=== PATIENT | male | born 1955 | race Asian ===

== ENCOUNTER 2023-12-24 19:41 | Inpatient (IN) | payer MEDICARE, MEDICAID ==
[~2023-12-24] VITALS: Ht 170.2 cm; Wt 66.2 kg
[2023-12-24] MEDS: IV NORMAL SALINE 1000 ML BAG IV ONE (20:00)
[2023-12-24] MEDS: HYDROCODONE/APAP 10-325 MG TABLET PO ONE (20:55)
[2023-12-24] MEDS ORDERED: HYDROCODONE/APAP 5-325MG TABLET ONE (20:57)
[2023-12-24 21:01] LABS: BASOPHILS # (AUTO) 0.1 K/UL (0.0-0.2); BASOPHILS % (AUTO) 1.3 % (0.0-2.0); EOSINOPHILS # (AUTO) 0.9 K/uL (0.0-0.7); EOSINOPHILS % (AUTO) 10.4 % (0.0-7.0); HEMATOCRIT 29.8 % (36.7-47.1); HEMOGLOBIN 9.4 g/dL (12.5-16.3); LYMPHOCYTES % (AUTO) 10.9 % (20.5-51.5); MEAN CORPUSCULAR HEMOGLOBIN 25.1 uug (23.8-33.4); MEAN CORPUSCULAR HGB CONC 32 g/dL (32.5-36.3); MEAN CORPUSCULAR VOLUME 79.5 fL (73.0-96.2); MONOCYTES # (AUTO) 0.5 K/uL (0.1-1.30); MONOCYTES % (AUTO) 5.6 % (0.0-11.0); NEUTROPHILS # (AUTO) 6.3 K/uL (1.8-8.9); NEUTROPHILS % (AUTO) 71.8 % (38.5-71.5); PLATELET COUNT (AUTO) 270 K/uL (152-348); RED BLOOD CELL COUNT(AUTO) 3.75 MIL/uL (4.06-5.63); RED CELL DISTRIBUTION WIDTH 15.9 % (12.1-16.2); WHITE BLOOD COUNT (AUTO) 8.8 K/uL (3.6-10.2)
[2023-12-24 21:03] LABS: DIFFERENTIAL COMMENT 1
[2023-12-24 21:07] LABS: CALCIUM 8.5 mg/dL (8.5-10.1); CARBON DIOXIDE 24 mmol/L (21-32); CHLORIDE 106 mmol/L (98-107); CREATININE 2.5 mg/dL (0.6-1.3); GLUCOSE 172 mg/dL (74-106); POTASSIUM 4.6 mmol/L (3.5-5.1); SODIUM SERUM 140 mmol/L (136-145); UREA NITROGEN, BLOOD 22 mg/dL (7-18)
[2023-12-24 21:15] LABS: ALBUMIN 1.9 g/dL (3.4-5.0); ALKALINE PHOSPHATASE 110 U/L (50-136); ASPARTATE AMINOTRANSFERASE 6 U/L (15-37); BILIRUBIN,DIRECT 0.1 mg/dL (0.0-0.2); BILIRUBIN,TOTAL 0.2 mg/dL (0.2-1.0); LIPASE 23 U/L (16-77); TOTAL PROTEIN, SERUM 6.7 g/dL (6.4-8.2)
[2023-12-24 21:16] LABS: ALANINE AMINOTRANSFERASE < 6 U/L (16-63)
[2023-12-24] MEDS ORDERED: ONDANSETRON 4 MG/2 ML VIAL IV PRN (23:00)
[2023-12-24] MEDS ORDERED: ACETAMINOPHEN 650 MG SUPP.RECT RC PRN (23:00)
[2023-12-24] MEDS ORDERED: PEDI0.2517 (23:43)
[2023-12-24] MEDS ORDERED: ATOR40TA PO (23:43)
[2023-12-24] MEDS ORDERED: ISOS10TA2 PO (23:43)
[2023-12-24] MEDS ORDERED: POLY17PO20 PO (23:43)
[2023-12-24] MEDS ORDERED: TAMS-3 PO (23:43)
[2023-12-24] MEDS ORDERED: DOCU-141 PO (23:43)
[2023-12-24] MEDS ORDERED: METO25TA6 PO (23:43)
[2023-12-24] MEDS ORDERED: INSU100V9 SUBCUT (23:43)
[2023-12-24] MEDS ORDERED: MIRT-121 PO (23:43)
[2023-12-24] MEDS ORDERED: PANT40TA2 PO (23:43)
[2023-12-24] MEDS ORDERED: SENN-261 PO (23:43)
[2023-12-25] MEDS: VANCOMYCIN IV 1,000 MG in IV DEXTROSE 5% 250 ML IV ONE (01:45)
[2023-12-25] MEDS: PIPERACILLIN/TAZO 2.25 G in IV DEXTROSE 5% 50 ML IV ONE (02:00)
[2023-12-25 03:08] VITALS: BP 138/68; TEMP 98.1; O2SAT 99
[2023-12-25 06:08] VITALS: BP 111/69; TEMP 98; O2SAT 99
[2023-12-25] MEDS ORDERED: MAGN400O6 PO (08:20)
[2023-12-25] MEDS ORDERED: HYDR-3980 PO (08:20)
[2023-12-25] MEDS ORDERED: BISA10SU61 RC (08:20)
[2023-12-25] MEDS ORDERED: MULT-366 PO (08:20)
[2023-12-25] MEDS ORDERED: NA P133E RC (08:20)
[2023-12-25] MEDS ORDERED: APIX5TAB PO (08:20)
[2023-12-25] MEDS ORDERED: ACET325T53 PO (08:20)
[2023-12-25] MEDS ORDERED: HYDR-4209 PO (08:56)
[2023-12-25] MEDS: PANTOPRAZOLE SODIUM 40 MG VIAL IV SCH (10:56)
[2023-12-25 11:51] VITALS: BP 138/56; TEMP 97.4; O2SAT 99
[2023-12-25] MEDS: PIPERACILLIN/TAZO 2.25 G in IV DEXTROSE 5% 50 ML IV SCH (12:38)
[2023-12-25] MEDS: VANCOMYCIN HCL 750 MG in IV DEXTROSE 5% 250 ML IV ONE (13:40)
[2023-12-25] MEDS ORDERED: BISACODYL 10 MG SUPP.RECT RC PRN (13:45)
[2023-12-25] MEDS: HYDROCODONE/APAP 5-325MG TABLET PO PRN (14:41)
[2023-12-25 16:21] LABS: EOSINOPHILS # (AUTO) 0.2 K/uL (0.0-0.7); EOSINOPHILS % (AUTO) 3.3 % (0.0-7.0); HEMATOCRIT 28.2 % (36.7-47.1); HEMOGLOBIN 8.8 g/dL (12.5-16.3); LYMPHOCYTES # (AUTO) 0.1 K/uL (0.8-4.8); LYMPHOCYTES % (AUTO) 2.3 % (20.5-51.5); MEAN CORPUSCULAR HEMOGLOBIN 24.7 uug (23.8-33.4); MEAN CORPUSCULAR HGB CONC 31 g/dL (32.5-36.3); MEAN CORPUSCULAR VOLUME 79.6 fL (73.0-96.2); MONOCYTES % (AUTO) 0.4 % (0.0-11.0); NEUTROPHILS # (AUTO) 5.8 K/uL (1.8-8.9); PLATELET COUNT (AUTO) 247 K/uL (152-348); RED BLOOD CELL COUNT(AUTO) 3.55 MIL/uL (4.06-5.63); RED CELL DISTRIBUTION WIDTH 15.9 % (12.1-16.2); WHITE BLOOD COUNT (AUTO) 6.2 K/uL (3.6-10.2)
[2023-12-25 16:22] LABS: DIFFERENTIAL COMMENT 1
[2023-12-25] MEDS: BISACODYL 10 MG SUPP.RECT RC PRN (16:22)
[2023-12-25 16:30] VITALS: BP 105/55; TEMP 98.4; O2SAT 97
[2023-12-25] MEDS: INSULIN REGULAR, HUMAN 300 UNIT/3 ML VIAL SQ SCH (16:30)
[2023-12-25] MEDS: BLOOD SUGAR DIAGNOSTIC 1 EACH STRIP VI SCH (16:45)
[2023-12-25 16:46] LABS: THYROID STIMULATING HORMONE 0.908 mIU/mL (0.358-3.740)
[2023-12-25] MEDS: METOPROLOL TARTRATE 25 MG TABLET PO SCH (17:00)
[2023-12-25] MEDS: APIXABAN 5 MG TABLET PO SCH (17:00)
[2023-12-25 17:29] LABS: ALBUMIN 1.8 g/dL (3.4-5.0); BILIRUBIN,TOTAL 0.5 mg/dL (0.2-1.0); CALCIUM 8.4 mg/dL (8.5-10.1); CREATININE 2.5 mg/dL (0.6-1.3); MAGNESIUM 2.1 mg/dL (1.8-2.4); PHOSPHOROUS 3.5 mg/dL (2.5-4.9); POTASSIUM 4.2 mmol/L (3.5-5.1); TOTAL PROTEIN, SERUM 6.1 g/dL (6.4-8.2)
[2023-12-25] MEDS: MIRTAZAPINE 15 MG TABLET PO SCH (21:00)
[2023-12-25] MEDS: TAMSULOSIN HCL 0.4 MG CAP.SR.24H PO SCH (21:00)
[2023-12-25] MEDS: ATORVASTATIN 40 MG TABLET PO SCH (21:00)
[2023-12-25] MEDS: ISOSORBIDE DINITRATE 10 MG TABLET PO SCH (21:16)
[2023-12-25 22:13] VITALS: BP 171/65; TEMP 97.6; O2SAT 98
[2023-12-25] MEDS ORDERED: hydrALAZINE HCL 25 MG TABLET PO SCH (22:30)
[2023-12-26] MEDS: IV D5/ 0.9% NACL 1,000 ML IV PRN (03:25)
[2023-12-26 06:29] VITALS: BP 111/50; TEMP 98.7; O2SAT 99
[2023-12-26] MEDS ORDERED: PANTOPRAZOLE SODIUM 40 MG TABLET.DR PO SCH (07:00)
[2023-12-26] MEDS ORDERED: hydrALAZINE HCL 20 MG/1 ML VIAL IV PRN (08:00)
[2023-12-26 08:06] LABS: CARCINOEMBRYONIC AG (CEA) 3.2 ng/mL (0.0-4.7)
[2023-12-26] MEDS: DOCUSATE SODIUM 100 MG CAPSULE PO SCH (08:18)
[2023-12-26] MEDS: ISOSORBIDE DINITRATE 10 MG TABLET PO SCH (08:26)
[2023-12-26 11:13] VITALS: BP_SYST 56; TEMP 97.8; O2SAT 99
[2023-12-26 13:09] LABS: CALCITRIOL VIT D,1,25 DIHYDROX 10.2 pg/mL (24.8-81.5)
[2023-12-26 16:00] VITALS: BP 109/56; TEMP 99.1; O2SAT 99
[2023-12-26] MEDS: VANCOMYCIN HCL 750 MG in IV DEXTROSE 5% 250 ML IV ONE (17:25)
[2023-12-26 20:29] VITALS: BP 111/62; TEMP 98.1; O2SAT 99
[2023-12-27 05:50] VITALS: BP 143/70; TEMP 98.8; O2SAT 98
[2023-12-27 12:25] LABS: BASOPHILS % (AUTO) 0.6 % (0.0-2.0); EOSINOPHILS # (AUTO) 0.6 K/uL (0.0-0.7); EOSINOPHILS % (AUTO) 11.3 % (0.0-7.0); HEMATOCRIT 29.3 % (36.7-47.1); LYMPHOCYTES # (AUTO) 0.1 K/uL (0.8-4.8); LYMPHOCYTES % (AUTO) 1.7 % (20.5-51.5); MEAN CORPUSCULAR HEMOGLOBIN 24.2 uug (23.8-33.4); MEAN CORPUSCULAR HGB CONC 31 g/dL (32.5-36.3); MEAN CORPUSCULAR VOLUME 78.6 fL (73.0-96.2); MONOCYTES # (AUTO) 0.2 K/uL (0.1-1.30); MONOCYTES % (AUTO) 3.4 % (0.0-11.0); NEUTROPHILS # (AUTO) 4.7 K/uL (1.8-8.9); PLATELET COUNT (AUTO) 213 K/uL (152-348); RED BLOOD CELL COUNT(AUTO) 3.72 MIL/uL (4.06-5.63); RED CELL DISTRIBUTION WIDTH 16.1 % (12.1-16.2); WHITE BLOOD COUNT (AUTO) 5.6 K/uL (3.6-10.2)
[2023-12-27 12:36] LABS: ALBUMIN 1.6 g/dL (3.4-5.0); ALKALINE PHOSPHATASE 80 U/L (50-136); ASPARTATE AMINOTRANSFERASE 6 U/L (15-37); BILIRUBIN,TOTAL 0.4 mg/dL (0.2-1.0); CARBON DIOXIDE 24 mmol/L (21-32); CHLORIDE 109 mmol/L (98-107); CREATININE 2.6 mg/dL (0.6-1.3); GLUCOSE 144 mg/dL (74-106); MAGNESIUM 1.9 mg/dL (1.8-2.4); PHOSPHOROUS 3.1 mg/dL (2.5-4.9); POTASSIUM 4.1 mmol/L (3.5-5.1); SODIUM SERUM 141 mmol/L (136-145); TOTAL PROTEIN, SERUM 5.9 g/dL (6.4-8.2); UREA NITROGEN, BLOOD 20 mg/dL (7-18)
[2023-12-27 12:38] LABS: ALANINE AMINOTRANSFERASE < 6 U/L (16-63); DIFFERENTIAL COMMENT 1
[2023-12-27] MEDS: VANCOMYCIN HCL 750 MG in IV DEXTROSE 5% 250 ML IV ONE (17:43)
[2023-12-27 20:00] VITALS: BP 156/70; TEMP 98.2; O2SAT 99
[2023-12-28 02:06] LABS: *BILIRUBIN,URIN NEGATIVE (NEGATIVE); *CLARITY,URINE CLEAR (CLEAR); *COLOR,URINE YELLOW (YELLOW); *KETONES,URINE NEGATIVE (NEGATIVE); *UROBILINOGEN,URINE 0.2 E.U./dl (NORMAL); LEUKOCYTE ESTERASE ,URINE NEGATIVE (NEGATIVE); NITRITE, URINE NEGATIVE (NEGATIVE); UGLUCOSE NEGATIVE (NEGATIVE)
[2023-12-28 02:25] LABS: *BLOOD, URINE NEGATIVE (NEGATIVE); *PROTEIN,URINE 3+ (NEGATIVE)
[2023-12-28 02:26] LABS: BACTERIA,URINE NONE SEEN /HPF (NONE SEEN); RBC,URINE 0-3 /HPF (0-3); SQUAMOUS EPITHELIAL CELL,UR NONE SEEN /HPF (NONE SEEN); WBC,URINE NONE SEEN /HPF (0-3)
[2023-12-28 02:30] LABS: *CREATININE,URINE 37.6 mg/dL (30-125); *URINE TOTAL PROTEIN RANDOM 146.1 mg/dL (<150/24HR)
[2023-12-28 10:28] LABS: BASOPHILS % (AUTO) 0.3 % (0.0-2.0); EOSINOPHILS # (AUTO) 0.5 K/uL (0.0-0.7); EOSINOPHILS % (AUTO) 15.5 % (0.0-7.0); HEMATOCRIT 28.1 % (36.7-47.1); HEMOGLOBIN 8.9 g/dL (12.5-16.3); LYMPHOCYTES # (AUTO) 0.1 K/uL (0.8-4.8); LYMPHOCYTES % (AUTO) 3.2 % (20.5-51.5); MEAN CORPUSCULAR HEMOGLOBIN 25.1 uug (23.8-33.4); MEAN CORPUSCULAR HGB CONC 32 g/dL (32.5-36.3); MEAN CORPUSCULAR VOLUME 78.9 fL (73.0-96.2); MONOCYTES # (AUTO) 0.2 K/uL (0.1-1.30); MONOCYTES % (AUTO) 6.1 % (0.0-11.0); NEUTROPHILS # (AUTO) 2.7 K/uL (1.8-8.9); NEUTROPHILS % (AUTO) 74.9 % (38.5-71.5); PLATELET COUNT (AUTO) 186 K/uL (152-348); RED BLOOD CELL COUNT(AUTO) 3.56 MIL/uL (4.06-5.63); WHITE BLOOD COUNT (AUTO) 3.5 K/uL (3.6-10.2)
[2023-12-28 10:34] LABS: DIFFERENTIAL COMMENT 1
[2023-12-28 10:39] LABS: ERYTHROCYTE SEDIMENTATION RATE 116 MM/HR (0-15)
[2023-12-28 10:54] LABS: ALBUMIN 1.6 g/dL (3.4-5.0); ALKALINE PHOSPHATASE 70 U/L (50-136); BILIRUBIN,TOTAL 0.4 mg/dL (0.2-1.0); CALCIUM 7.7 mg/dL (8.5-10.1); CARBON DIOXIDE 23 mmol/L (21-32); CHLORIDE 109 mmol/L (98-107); CREATINE KINASE, TOTAL 21 U/L (39-308); CREATININE 2.4 mg/dL (0.6-1.3); GLUCOSE 138 mg/dL (74-106); MAGNESIUM 1.8 mg/dL (1.8-2.4); PHOSPHOROUS 2.9 mg/dL (2.5-4.9); POTASSIUM 3.7 mmol/L (3.5-5.1); SODIUM SERUM 140 mmol/L (136-145); TOTAL PROTEIN, SERUM 5.6 g/dL (6.4-8.2); UREA NITROGEN, BLOOD 16 mg/dL (7-18)
[2023-12-28 11:05] LABS: ALANINE AMINOTRANSFERASE < 6 U/L (16-63); ASPARTATE AMINOTRANSFERASE 5 U/L (15-37)
[2023-12-28 12:00] VITALS: BP 111/64; TEMP 97.8; O2SAT 100
[2023-12-28 16:00] VITALS: BP 161/68; TEMP 97.6; O2SAT 97
[2023-12-28] MEDS: VANCOMYCIN HCL 750 MG in IV DEXTROSE 5% 250 ML IV ONE (17:26)
[2023-12-28 19:45] VITALS: BP 145/66; TEMP 97.7; O2SAT 100
[2023-12-29 08:08] LABS: PTH, INTACT 38 pg/mL (15-65)
[2023-12-29 11:15] LABS: BASOPHILS % (AUTO) 0.7 % (0.0-2.0); EOSINOPHILS # (AUTO) 0.4 K/uL (0.0-0.7); EOSINOPHILS % (AUTO) 11.3 % (0.0-7.0); HEMATOCRIT 28.5 % (36.7-47.1); HEMOGLOBIN 8.8 g/dL (12.5-16.3); LYMPHOCYTES # (AUTO) 0.2 K/uL (0.8-4.8); LYMPHOCYTES % (AUTO) 3.9 % (20.5-51.5); MEAN CORPUSCULAR HEMOGLOBIN 24.3 uug (23.8-33.4); MEAN CORPUSCULAR HGB CONC 31 g/dL (32.5-36.3); MEAN CORPUSCULAR VOLUME 78.7 fL (73.0-96.2); MONOCYTES # (AUTO) 0.3 K/uL (0.1-1.30); MONOCYTES % (AUTO) 6.6 % (0.0-11.0); NEUTROPHILS % (AUTO) 77.5 % (38.5-71.5); PLATELET COUNT (AUTO) 171 K/uL (152-348); RED BLOOD CELL COUNT(AUTO) 3.63 MIL/uL (4.06-5.63); RED CELL DISTRIBUTION WIDTH 15.7 % (12.1-16.2); WHITE BLOOD COUNT (AUTO) 3.9 K/uL (3.6-10.2)
[2023-12-29 11:28] LABS: DIFFERENTIAL COMMENT 1
[2023-12-29 11:43] LABS: ALBUMIN 1.6 g/dL (3.4-5.0); BILIRUBIN,TOTAL 0.4 mg/dL (0.2-1.0); CALCIUM 7.7 mg/dL (8.5-10.1); CREATININE 2.1 mg/dL (0.6-1.3); MAGNESIUM 1.8 mg/dL (1.8-2.4); PHOSPHOROUS 2.6 mg/dL (2.5-4.9); POTASSIUM 3.9 mmol/L (3.5-5.1); TOTAL PROTEIN, SERUM 5.6 g/dL (6.4-8.2)
[2023-12-30] MEDS: PANTOPRAZOLE SODIUM 40 MG TABLET.DR PO SCH (06:52)
[2023-12-30 06:55] LABS: BASOPHILS % (AUTO) 0.3 % (0.0-2.0); EOSINOPHILS # (AUTO) 0.5 K/uL (0.0-0.7); EOSINOPHILS % (AUTO) 11.3 % (0.0-7.0); HEMATOCRIT 27.6 % (36.7-47.1); HEMOGLOBIN 8.9 g/dL (12.5-16.3); LYMPHOCYTES # (AUTO) 0.3 K/uL (0.8-4.8); LYMPHOCYTES % (AUTO) 6.8 % (20.5-51.5); MEAN CORPUSCULAR HEMOGLOBIN 24.9 uug (23.8-33.4); MEAN CORPUSCULAR HGB CONC 32 g/dL (32.5-36.3); MEAN CORPUSCULAR VOLUME 77.5 fL (73.0-96.2); MONOCYTES # (AUTO) 0.3 K/uL (0.1-1.30); MONOCYTES % (AUTO) 7.3 % (0.0-11.0); NEUTROPHILS % (AUTO) 74.3 % (38.5-71.5); PLATELET COUNT (AUTO) 163 K/uL (152-348); RED BLOOD CELL COUNT(AUTO) 3.56 MIL/uL (4.06-5.63); RED CELL DISTRIBUTION WIDTH 15.7 % (12.1-16.2)
[2023-12-30 07:03] LABS: CALCIUM 7.8 mg/dL (8.5-10.1); CREATININE 2.1 mg/dL (0.6-1.3); POTASSIUM 3.7 mmol/L (3.5-5.1)
[2023-12-30 07:04] VITALS: BP 133/40; TEMP 97.8; O2SAT 98
[2023-12-30 07:04] LABS: ALBUMIN 1.6 g/dL (3.4-5.0); BILIRUBIN,TOTAL 0.5 mg/dL (0.2-1.0); MAGNESIUM 1.6 mg/dL (1.8-2.4); PHOSPHOROUS 2.4 mg/dL (2.5-4.9); TOTAL PROTEIN, SERUM 5.4 g/dL (6.4-8.2)
[2023-12-30 07:05] LABS: DIFFERENTIAL COMMENT 1
[2023-12-30 12:00] VITALS: BP 136/55; TEMP 97.5; O2SAT 99
[2023-12-30] MEDS: MAGNESIUM OXIDE 400 MG TABLET PO ONE (13:19)
[2023-12-30] MEDS: NEUTRA PHOS PACKET PO ONE (15:37)
[2023-12-30 16:00] VITALS: BP 151/79; TEMP 97.1; O2SAT 99
[2023-12-30] MEDS: VANCOMYCIN HCL 750 MG in IV DEXTROSE 5% 250 ML IV ONE (18:57)
[2023-12-30 20:00] VITALS: BP 137/50; TEMP 98; O2SAT 97
[2023-12-31 06:42] VITALS: BP 127/40; TEMP 98.2; O2SAT 97
[2023-12-31 07:00] LABS: CALCIUM 7.8 mg/dL (8.5-10.1); CREATININE 2.1 mg/dL (0.6-1.3); PHOSPHOROUS 2.3 mg/dL (2.5-4.9); POTASSIUM 3.5 mmol/L (3.5-5.1)
[2023-12-31] MEDS ORDERED: ENSURE WITH FIBER 237 ML LIQUID (CHOCOLATE) PO SCH (12:00)
[2023-12-31] MEDS: GLUCERNA SHAKE 237 ML CAN PO SCH (12:15)
[2023-12-31 14:06] LABS: A/G RATIO 0.7 (0.7-1.7); ALPHA-1-GLOBULIN 0.3 g/dL (0.0-0.4); ALPHA-2-GLOBULIN 0.9 g/dL (0.4-1.0); BETA GLOBULIN 0.8 g/dL (0.7-1.3); M-SPIKE Not Observed g/dL (Not Observed)
[2023-12-31] MEDS: NEUTRA PHOS PACKET PO ONE (15:45)
[2023-12-31 16:00] VITALS: BP 143/61; TEMP 97.9; O2SAT 96
[2023-12-31] MEDS: VANCOMYCIN HCL 750 MG in IV DEXTROSE 5% 250 ML IV SCH (17:03)
[2023-12-31 17:07] VITALS: BP 167/58
[2024-01-01 05:20] VITALS: TEMP 98
[2024-01-01 07:20] LABS: CALCIUM 7.7 mg/dL (8.5-10.1); CREATININE 2.1 mg/dL (0.6-1.3); PHOSPHOROUS 2.2 mg/dL (2.5-4.9); POTASSIUM 3.6 mmol/L (3.5-5.1)
[2024-01-01 08:03] LABS: C-REACTIVE PROTEIN 1.55 mg/dL (0.00-0.30)
[2024-01-01] MEDS ORDERED: ACID1TAB4 PO (15:11)
[2024-01-01] MEDS ORDERED: GLIP5TAB13 PO (15:11)
[2024-01-01] MEDS ORDERED: APIX2.5T PO (15:11)
[2024-01-01] MEDS ORDERED: MERO1VIA23 IV (15:11)
[2024-01-01] MEDS ORDERED: FOLI0.8T23 PO (15:11)
[2024-01-01] MEDS ORDERED: ATOR10TA PO (15:11)
[2024-01-01] MEDS ORDERED: RXVAN XX (15:11)
[2024-01-01 16:15] VITALS: BP 143/46; TEMP 98.1; O2SAT 99
[2024-01-01] MEDS: NEUTRA PHOS PACKET PO ONE (16:41)
[2024-01-01 16:48] VITALS: BP 143/46
== END 2024-01-01 18:10 | DRG 871 ==
LOC: ER 19:54 → MEDSURG3 22:26
PROVIDERS: ADMIT Internal Medicine; ATTEND Internal Medicine
DX: A41.9 Sepsis, unspecified organism (principal); G06.1 Intraspinal abscess and granuloma; G93.41 Metabolic encephalopathy; N17.0 Acute kidney failure with tubular necrosis; G92.8 Other toxic encephalopathy; I69.351 Hemiplegia and hemiparesis following cerebral infarction affecting right dominant side; E44.0 Moderate protein-calorie malnutrition; M46.25 Osteomyelitis of vertebra, thoracolumbar region; D68.59 Other primary thrombophilia; M46.45 Discitis, unspecified, thoracolumbar region; L30.9 Dermatitis, unspecified; N40.0 Benign prostatic hyperplasia without lower urinary tract symptoms; Z66 Do not resuscitate; Z86.718 Personal history of other venous thrombosis and embolism; E11.42 Type 2 diabetes mellitus with diabetic polyneuropathy; Z89.421 Acquired absence of other right toe(s); E11.620 Type 2 diabetes mellitus with diabetic dermatitis; Z79.4 Long term (current) use of insulin; Z79.899 Other long term (current) drug therapy; E11.69 Type 2 diabetes mellitus with other specified complication; I12.9 Hypertensive chronic kidney disease with stage 1 through stage 4 chronic kidney disease, or unspecified chronic kidney disease; N18.9 Chronic kidney disease, unspecified; E11.22 Type 2 diabetes mellitus with diabetic chronic kidney disease; D72.819 Decreased white blood cell count, unspecified; Z74.09 Other reduced mobility; D63.1 Anemia in chronic kidney disease; F01.50 Vascular dementia, unspecified severity, without behavioral disturbance, psychotic disturbance, mood disturbance, and anxiety; Z68.22 Body mass index [BMI] 22.0-22.9, adult; Z91.148 Patient's other noncompliance with medication regimen for other reason; M89.8X9 Other specified disorders of bone, unspecified site; E88.9 Metabolic disorder, unspecified
CPT/HCPCS: 36415; 51798; 70030-TC; 71045; 71250; 72148; 82378; 82652; 83550; 83605; 83690; 83735; 83970; 84100; 84155; 84165; 84300; 84443; 84484; 85025; 85651; 86140; 87040; 93005; A4663; C9113; G0378; J1815; J2543; J3370; J7040; J7042; J7050; J7070